=== PATIENT | male | born 1980 | race Caucasian/White ===

== ENCOUNTER 2022-07-15 13:03 | Emergency (ER) | payer OTHER ==
--- NOTE | 2022-07-15 14:46 | CT ---
EXAMINATION TYPE: CT thor lumbar spine wo con DATE OF EXAM: 07/15/2022 COMPARISON: Thoracic spine x-ray earlier today and older CT 2014. HISTORY: Back pain, L1 compression fracture(s) in the past. Fall injury. CT DLP: 1377.3 mGycm Automated exposure control for dose reduction was used. FINDINGS: [id number] height loss involving the superior T12 endplate corresponds to x-ray abnormality. No linear lucency to suggest acute fracture or injury. Finding is new however from 2014 CT in the inter [place]. No posterior osseous retropulsion. Spinal canal is preserved. Alignment is satisfactorily thorac olumbar spine and sagittal and coronal images. The disc space heights are maintained. Visualized lungs are clear. Mild fat stranding left abdominal mesentery noted with prominent but subc entimeter lymph nodes, correlate clinically. IMPRESSION: Mild to moderate compression fracture deformity involving the superior T12 vertebra is fe lt chronic in age as there is no linear lucency to suggest acute or subacute fracture injury.
--- NOTE | 2022-07-15 15:42 | ED ---
General Adult HPI - General Chief complaint: Back Pain/Injury Stated complaint: [facility] - Fall,Back Injury Time Seen by Provider: 07/15/22 15:15 Source: patient, RN notes reviewed, old records reviewed Mode of arrival: ambulatory Limitations: no limitations - History of Present Illness Initial comments: This is a 42-year-old male who presents emergency Department after he was at [employer].. Patient states he slipped on some oil and let himself go down slowly but since then he had lower back pain bilaterally. Patient denies any numbness or weakness. Patient denies any urinary symptoms. Patient had an x-ray [employer]. and had a compression fracture at L1. He was sent over here for further evaluation. I saw the patient and he had some paraspinous muscle tenderness on palpation he had no numbness or weakness of his lower extremities. Patient has no other complaint - Related Data Home Medications Medication Instructions Recorded Confirmed Ibuprofen [Motrin] 600 mg PO DIRECTED PRN 07/17/14 08/07/14 Previous Rx's Medication Instructions Recorded Buta/APAP/Caf/Cod 97-139-50-30 1 each PO Q6HR PRN #20 capsule 08/07/14 [Fioricet w/Cod 42-570-40-30MG] Cyclobenzaprine [Flexeril] 10 mg PO TID #20 tab 07/15/22 Ketorolac [Toradol] 10 mg PO Q6HR #15 tab 07/15/22 Allergies Allergy/AdvReac Type Severity Reaction Status Date / Time No Known Allergies Allergy Verified 07/15/22 13:43 Review of Systems ROS Statement: Those systems with pertinent positive or pertinent negative responses have been documented in the HPI. ROS Other: All systems not noted in ROS Statement are negative. Past Medical History Past Medical History: No Reported History History of Any Multi-Drug Resistant Organisms: None Reported Past Surgical History: No Surgical Hx Reported Past Psychological History: No Psychological Hx Reported Smoking Status: Former smoker Past Alcohol Use History: None Reported Past Drug Use History: None Reported General Exam - General Exam Comments Initial Comments: GENERAL: Patient is well-developed and well-nourished. Patient is nontoxic and well- hydrated and is in mild distress. ENT: Neck is soft and supple. No significant lymphadenopathy is noted. Oropharynx is clear. Moist mucous membranes. Neck has full range of motion without eliciting any pain. EYES: The sclera were anicteric and conjunctiva were pink and moist. Extraocular movements were intact and pupils were equal round and reactive to light. Eyelids were unremarkable. SKIN: Skin is clear with no lesions or rashes and otherwise unremarkable. NEUROLOGIC: Patient is alert and oriented x3. Cranial nerves II through XII are grossly intact. Motor and sensory are also intact. Normal speech, volume and content. Symmetrical smile. MUSCULOSKELETAL: Normal extremities with adequate strength and full range of motion. Patient has some lumbar paraspinal muscle tenderness LYMPHATICS: No significant lymphadenopathy is noted PSYCHIATRIC: Normal psychiatric evaluation. Limitations: no limitations Course Vital Signs 07/15/22 13:39 Temperature 97.7 F Pulse Rate 71 Respiratory 18 Rate Blood Pressure 147/96 O2 Sat by Pulse 100 Oximetry Medical Decision Making - Medical Decision Making CT of the lumbar spine was repaired by myself. The CT showed a compression fracture T12. Disposition Clinical Impression: Compression fracture of T12 vertebra, Lumbar strain Disposition: HOME SELF-CARE Condition: Good Instructions (If sedation given, give patient instructions): Low Back Strain (ED), Vertebral Compression Fracture (ED) Prescriptions: Cyclobenzaprine [Flexeril] 10 mg PO TID #20 tab Ketorolac [Toradol] 10 mg PO Q6HR #15 tab Is patient prescribed a controlled substance at d/c from ED?: No Referrals: Joshua Villa MD [Primary Care Provider] - 1-2 days Time of Disposition: 15:42
[2022-07-15 15:53] VITALS: BP 128/78; PULSE 78; RESP 16; TEMP 98
== END 2022-07-15 15:51 | disposition home or self-care (01) ==
LOC: EC 13:03
DX: S32.009A Unspecified fracture of unspecified lumbar vertebra, initial encounter for closed fracture (principal); Z87.891 Personal history of nicotine dependence; W01.0XXA Fall on same level from slipping, tripping and stumbling without subsequent striking against object, initial encounter
CPT/HCPCS: 72128; 72131; 99283

== ENCOUNTER → 2022-07-15 | Outpatient (CLI) | payer OTHER ==
--- NOTE | 2022-07-15 11:43 | XR ---
EXAMINATION TYPE: XR shoulder complete LT DATE OF EXAM: 07/15/2022 COMPARISON: NONE HISTORY: Pain TECHNIQUE: Three views are submitted. FINDINGS: The osseous structures are intact. There is no acute fracture or dislocation. The AC joint is maint ained. May be slight elevation of the clavicle. IMPRESSION: 1. No acute process. Stable minimal elevation of the clavicle relative acromion. If symptoms persist correlate with MRI to assess for AC joint ligamentous injury.
--- NOTE | 2022-07-15 11:46 | XR ---
EXAMINATION TYPE: XR thoracic spine complete DATE OF EXAM: 07/15/2022 COMPARISON: NONE HISTORY: Pain TECHNIQUE: 3 views submitted FINDINGS: Alignment is anatomic. There is no compression deformities. Multilevel mild degenerative disc diseas e and hypertrophic spurring. There is a superior endplate compression fracture L1. For a call to refe rring clinician 11:43 AM 07/15/2022. IMPRESSION: 1. There is a superior endplate compression fracture L1. Recommend follow-up MRI.
--- NOTE | 2022-07-15 11:49 | XR ---
EXAMINATION TYPE: XR chest 2V DATE OF EXAM: 07/15/2022 COMPARISON: NONE HISTORY: Chest pain after fall injury. TECHNIQUE: Frontal and lateral views of the chest are obtained. FINDINGS: There is no suspicious focal air space opacity, pleural effusion, or pneumothorax seen. T he cardiac silhouette size is within normal limits. The osseous structures are intact. IMPRESSION: No acute cardiopulmonary process.
== END | disposition home or self-care (01) ==
LOC: RADXRMAIN 11:17
PROVIDERS: ATTEND Emergency Medicine
DX: S23.3XXA Sprain of ligaments of thoracic spine, initial encounter (principal); S43.402A Unspecified sprain of left shoulder joint, initial encounter; M48.56XA Collapsed vertebra, not elsewhere classified, lumbar region, initial encounter for fracture; S29.001A Unspecified injury of muscle and tendon of front wall of thorax, initial encounter; W19.XXXA Unspecified fall, initial encounter
CPT/HCPCS: 71046; 72072

== ENCOUNTER → 2023-06-04 | Outpatient (CLI) | payer SELFPAY ==
--- NOTE | 2023-06-04 12:32 | CT ---
EXAMINATION TYPE: CT brain wo con DATE OF EXAM: 06/04/2023 COMPARISON: 05/01/2023. HISTORY: Closed head injury, follow up CT DLP: 1185.80 mGycm. Automated Exposure Control for Dose Reduction was Utilized. TECHNIQUE: CT scan of the head is performed without contrast. FINDINGS: There is no acute intracranial hemorrhage, mass effect, or midline shift identified. The ventricles and sulci are within normal limits in size. The globes are intact and the visualized sin uses are clear. IMPRESSION: No acute intracranial hemorrhage, mass effect, or midline shift is seen. Resolution of the previously seen subarachnoid hemorrhage.
== END | disposition home or self-care (01) ==
LOC: RADCTMAIN 11:51
PROVIDERS: ATTEND Neurological Surgery
DX: S06.9X1A Unspecified intracranial injury with loss of consciousness of 30 minutes or less, initial encounter (principal)
CPT/HCPCS: 70450